=== PATIENT | male | born 1945 | race Caucasian/White ===

== ENCOUNTER → 2016-12-02 | Outpatient (CLI) | payer MEDICARE ==
[~2016-12-02] MED LIST: ALLOPURINOL300 MG PO; ANTIBIOTIC O500 U/GM TP; ATORVASTATIN CA20 M1 PO; AVAPRO300 MG PO; CIPRO500 MG PO; ECOTRIN325 MG PO; ECOTRIN81 M1 PO; FEXOFENADINE H180 MG PO; FLOMAX0.4 MG PO; HYDROCHLOROTHIA25 MG PO; IBUPROFEN800 MG PO; LIPITOR20 MG PO; METFORMIN500 MG PO; Motrin,Rufen800 MG PO; NORCO 325 MG-51 TAB PO; OXYBUTYNIN5 MG/5 M1 PO; PERCOCET 325 MG1 TA4 PO; PERCOCET 325 MG1 TA7 PO; TIZANIDINE HCL4 MG PO; ZANAFLEX6 M1 PO; ZOFRAN ODT4 MG SL
== END ==
LOC: US 07:05
DX: Z13.6 Encounter for screening for cardiovascular disorders (principal); I10 Essential (primary) hypertension; E78.5 Hyperlipidemia, unspecified

== ENCOUNTER → 2017-05-10 | Outpatient (CLI) | payer MEDICARE ==
[2017-05-10 09:00] LABS: BUN 13 mg/dl (7-24); CHLORIDE 106 mmol/L (98-107); POTASSIUM 4.3 mmol/L (3.5-5.1); SODIUM 142 mmol/L (136-145)
== END | disposition home or self-care (01) ==
LOC: LAB 07:51
PROVIDERS: Orthopaedic Surgery Hand Surgery
DX: Z01.818 Encounter for other preprocedural examination (principal); G56.21 Lesion of ulnar nerve, right upper limb; M19.021 Primary osteoarthritis, right elbow

== ENCOUNTER 2017-05-23 23:20 | Emergency (ER) | payer MEDICARE ==
[~2017-05-23] VITALS: Ht 177.8 cm; Wt 124.3 kg
[2017-05-23 23:24] VITALS: BP 163/88
[2017-05-24 00:11] LABS: BASO # 0.1 10*3/uL (0.0-0.1); BASO % 0.7 % (0.0-1.0); EOS # 0.5 10*3/uL (0.0-0.4); HEMATOCRIT 43.7 % (42.0-52.0); HEMOGLOBIN 14.9 g/dl (14.0-18.0); LYMPH # 1.9 10*3/uL (1.3-4.4); LYMPH % 18.4 % (27.0-41.0); MEAN CELL VOLUME 89.7 fl (80.0-94.0); MEAN CORPUSCULAR HGB 30.6 pg (27.0-31.0); MEAN CORPUSCULAR HGB CONC 34.1 g/dl (33.0-37.0); MEAN PLATELET VOLUME 9.8 fl (9.6-12.3); MONO # 1.1 10*3/uL (0.1-1.0); MONO % 10.7 % (3.0-9.0); NEUT # 6.5 10*3/uL (2.3-7.9); NEUT % 64.7 % (47.0-73.0); PLATELET COUNT AUTOMATED 157 10*3/uL (130-400); RED BLOOD COUNT 4.87 10*6/uL (4.50-5.90); RED CELL DISTRI WIDTH 12.9 % (0-14.5); WHITE BLOOD COUNT 10.1 10*3/uL (4.8-10.8)
[2017-05-24 00:26] LABS: ALBUMIN 4.1 gm/dl (3.1-4.5); ALKALINE PHOSPHATASE 117 U/L (45-117); BUN 19 mg/dl (7-24); CHLORIDE 103 mmol/L (98-107); CREATININE 0.83 mg/dL (0.70-1.30); LIPASE 180 U/L (73-393); POTASSIUM 4.2 mmol/L (3.5-5.1); SGOT/AST 18 IU/L (3-35); SGPT/ALT 30 U/L (12-78); SODIUM 139 mmol/L (136-145); TOTAL PROTEIN 6.9 gm/dL (6.4-8.2)
[2017-05-24 00:35] LABS: BILIRUBIN NEGATIVE (NEGATIVE); BLOOD 3+ (NEGATIVE); CLARITY SL CLOUDY (CLEAR); COLOR YELLOW (YELLOW); GLUCOSE NEGATIVE (NEGATIVE); KETONE NEGATIVE (NEGATIVE); LEUKO ESTERASE NEGATIVE (NEGATIVE); NITRITE NEGATIVE (NEGATIVE); PH 5.5 (5.0-9.0); SPECIFIC GRAVITY 1.025 (1.005-1.030); UROBILINOGEN 0.2 E.U./dl (0.2-1.0)
[2017-05-24 00:44] LABS: BACTERIA 2+; RBC 51-100 rbc/hpf (0-2); WBC 0-2 wbc/hpf (0-5)
[2017-05-24] MEDS ORDERED: NORCO 5-325 TA1 EACH PO (02:00)
[2017-05-24] MEDS ORDERED: FLOMAX0.4 MG PO (02:00)
[2017-05-24] MEDS ORDERED: ZOFRAN ODT4 MG SL (02:00)
== END 2017-05-24 02:21 | disposition home or self-care (01) ==
LOC: ED 23:20
PROVIDERS: Physician Assistant
DX: N20.1 Calculus of ureter (principal); Z87.442 Personal history of urinary calculi; Z88.1 Allergy status to other antibiotic agents; Z88.8 Allergy status to other drugs, medicaments and biological substances; Z79.82 Long term (current) use of aspirin; Z79.899 Other long term (current) drug therapy

== ENCOUNTER → 2017-06-30 | Outpatient (CLI) | payer MEDICARE ==
[~2017-06-30] MED LIST changes: +NORCO 5-325 TA1 EACH PO
[2017-06-30 09:13] LABS: BUN 15 mg/dl (7-24); CHLORIDE 104 mmol/L (98-107); CREATININE 0.78 mg/dL (0.70-1.30); POTASSIUM 4.4 mmol/L (3.5-5.1); SODIUM 140 mmol/L (136-145)
== END | disposition home or self-care (01) ==
LOC: LAB 08:31
PROVIDERS: Physician Assistant
DX: N20.0 Calculus of kidney (principal)

== ENCOUNTER 2017-11-02 22:16 | Emergency (ER) | payer MEDICARE ==
[~2017-11-02] VITALS: Ht 177.8 cm; Wt 122.9 kg
[2017-11-02 23:49] LABS: BILIRUBIN NEGATIVE (NEGATIVE); BLOOD NEGATIVE (NEGATIVE); CLARITY CLEAR (CLEAR); COLOR YELLOW (YELLOW); GLUCOSE NEGATIVE (NEGATIVE); KETONE NEGATIVE (NEGATIVE); LEUKO ESTERASE NEGATIVE (NEGATIVE); NITRITE NEGATIVE (NEGATIVE); SPECIFIC GRAVITY >= 1.030 (1.005-1.030); UROBILINOGEN 0.2 E.U./dl (0.2-1.0)
[2017-11-02 23:57] LABS: BASO # 0.1 10*3/uL (0.0-0.1); BASO % 0.8 % (0.0-1.0); EOS # 0.4 10*3/uL (0.0-0.4); EOS % 3.6 % (1.0-4.0); HEMATOCRIT 40.6 % (42.0-52.0); HEMOGLOBIN 13.9 g/dl (14.0-18.0); LYMPH # 1.7 10*3/uL (1.3-4.4); LYMPH % 15.9 % (27.0-41.0); MEAN CELL VOLUME 88.8 fl (80.0-94.0); MEAN CORPUSCULAR HGB 30.4 pg (27.0-31.0); MEAN CORPUSCULAR HGB CONC 34.2 g/dl (33.0-37.0); MEAN PLATELET VOLUME 9.6 fl (9.6-12.3); MONO # 1.1 10*3/uL (0.1-1.0); MONO % 10.4 % (3.0-9.0); NEUT # 7.3 10*3/uL (2.3-7.9); NEUT % 68.7 % (47.0-73.0); PLATELET COUNT AUTOMATED 154 10*3/uL (130-400); RED BLOOD COUNT 4.57 10*6/uL (4.50-5.90); RED CELL DISTRI WIDTH 13.1 % (0-14.5); WHITE BLOOD COUNT 10.5 10*3/uL (4.8-10.8)
[2017-11-03 00:02] LABS: BACTERIA TRACE; WBC 0-2 wbc/hpf (0-5)
[2017-11-03 00:11] LABS: ALBUMIN 3.9 gm/dl (3.1-4.5); ALKALINE PHOSPHATASE 93 U/L (45-117); BUN 20 mg/dl (7-24); CHLORIDE 106 mmol/L (98-107); CREATININE 0.98 mg/dL (0.70-1.30); POTASSIUM 3.6 mmol/L (3.5-5.1); SGOT/AST 22 IU/L (3-35); SGPT/ALT 31 U/L (12-78); SODIUM 140 mmol/L (136-145); TOTAL PROTEIN 6.4 gm/dL (6.4-8.2)
[2017-11-03 09:29] VITALS: BP 133/73
== END 2017-11-03 10:29 | disposition federal hospital, planned readmission (88) ==
LOC: ED 22:16
PROVIDERS: Emergency Medicine
DX: N13.8 Other obstructive and reflux uropathy (principal); N20.0 Calculus of kidney; E11.9 Type 2 diabetes mellitus without complications; I10 Essential (primary) hypertension; E78.5 Hyperlipidemia, unspecified; G47.33 Obstructive sleep apnea (adult) (pediatric); Z98.890 Other specified postprocedural states; Z79.899 Other long term (current) drug therapy; Z79.82 Long term (current) use of aspirin; Z88.1 Allergy status to other antibiotic agents

== ENCOUNTER 2020-07-26 22:27 | Inpatient (IN) | payer MEDICARE ==
[~2020-07-26] VITALS: Ht 177.8 cm; Wt 112.7 kg
[2020-07-26 22:37] VITALS: BP 125/75
[2020-07-27] VITALS (9 sets, daily range): BP systolic 90–141; BP diastolic 45–86
[2020-07-27 00:02] LABS: EOS % 0.7 % (1.0-4.0); LYMPH % 22.2 % (27.0-41.0); MEAN CELL VOLUME 87.6 fl (80.0-94.0); MEAN CORPUSCULAR HGB 29.5 pg (27.0-31.0); MEAN CORPUSCULAR HGB CONC 33.7 g/dl (33.0-37.0); MEAN PLATELET VOLUME 10.4 fl (9.6-12.3); MONO # 0.6 10*3/uL (0.1-1.0); MONO % 13.3 % (3.0-9.0); NEUT # 2.7 10*3/uL (2.3-7.9); NEUT % 63.6 % (47.0-73.0); PLATELET COUNT AUTOMATED 152 10*3/uL (130-400); RED BLOOD COUNT 4.34 10*6/uL (4.50-5.90); RED CELL DISTRI WIDTH 12.6 % (0-14.5); WHITE BLOOD COUNT 4.3 10*3/uL (4.8-10.8)
[2020-07-27 00:27] LABS: ALBUMIN 3.3 gm/dl (3.1-4.5); ALKALINE PHOSPHATASE 56 U/L (45-117); BUN 20 mg/dl (7-24); CHLORIDE 100 mmol/L (98-107); CPK 582 U/L (39-308); CREATININE 0.76 mg/dL (0.70-1.30); INTERNATIONAL NORM RATIO 1.1 (2.0-3.5); LDH 350 U/L (87-241); POTASSIUM 3.6 mmol/L (3.5-5.1); SGOT/AST 51 IU/L (3-35); SGPT/ALT 48 U/L (12-78); SODIUM 136 mmol/L (136-145); TOTAL PROTEIN 6.4 gm/dL (6.4-8.2)
[2020-07-27 00:29] LABS: BILIRUBIN 1+ (Negative); BLOOD Negative (Negative); CLARITY Clear (Clear); COLOR Dark Yellow (Yellow); GLUCOSE Negative (Negative); KETONE Trace (Negative); LEUKO ESTERASE Trace (Negative); NITRITE Negative (Negative); PH 6.5 (4.5-8.0); SPECIFIC GRAVITY >= 1.030 (1.001-1.030)
[2020-07-27 00:31] LABS: TROPONIN I < 0.015 ng/ml (<0.045)
[2020-07-27 00:55] LABS: BACTERIA TRACE; MUCOUS TRACE
[2020-07-27 05:54] LABS: ALBUMIN 3.3 gm/dl (3.1-4.5); BUN 20 mg/dl (7-24); CHLORIDE 99 mmol/L (98-107); CREATININE 0.75 mg/dL (0.70-1.30); POTASSIUM 3.5 mmol/L (3.5-5.1); SGOT/AST 51 IU/L (3-35); SGPT/ALT 49 U/L (12-78); SODIUM 135 mmol/L (136-145)
[2020-07-27 05:57] LABS: ALKALINE PHOSPHATASE 56 U/L (45-117); TOTAL PROTEIN 6.7 gm/dL (6.4-8.2)
[2020-07-27 06:07] LABS: HEMATOCRIT 38.5 % (42.0-52.0); LYMPH # 0.8 10*3/uL (1.3-4.4); LYMPH % 16.1 % (27.0-41.0); MEAN CELL VOLUME 88.3 fl (80.0-94.0); MEAN CORPUSCULAR HGB 29.8 pg (27.0-31.0); MEAN CORPUSCULAR HGB CONC 33.8 g/dl (33.0-37.0); MEAN PLATELET VOLUME 10.8 fl (9.6-12.3); MONO # 0.3 10*3/uL (0.1-1.0); MONO % 5.8 % (3.0-9.0); NEUT # 3.9 10*3/uL (2.3-7.9); NEUT % 77.7 % (47.0-73.0); PLATELET COUNT AUTOMATED 158 10*3/uL (130-400); RED BLOOD COUNT 4.36 10*6/uL (4.50-5.90); RED CELL DISTRI WIDTH 12.6 % (0-14.5)
[2020-07-27 06:47] LABS: ACT PARTIAL THROMBO TIME 36.2 SECONDS (20.0-32.1); INTERNATIONAL NORM RATIO 1.1 (2.0-3.5)
[2020-07-28] VITALS: BP 109/89
[2020-07-28 05:43] LABS: ALBUMIN 3.3 gm/dl (3.1-4.5); BUN 19 mg/dl (7-24); CHLORIDE 100 mmol/L (98-107); CREATININE 0.79 mg/dL (0.70-1.30); LDH 321 U/L (87-241); POTASSIUM 3.6 mmol/L (3.5-5.1); SGOT/AST 38 IU/L (3-35); SGPT/ALT 46 U/L (12-78); SODIUM 137 mmol/L (136-145); TOTAL PROTEIN 6.5 gm/dL (6.4-8.2)
[2020-07-28 05:45] LABS: ALKALINE PHOSPHATASE 58 U/L (45-117)
[2020-07-28 05:46] LABS: CPK 381 U/L (39-308)
[2020-07-28 06:44] LABS: BASO % 0.2 % (0.0-1.0); EOS % 0.2 % (1.0-4.0); HEMATOCRIT 38.7 % (42.0-52.0); LYMPH # 1.1 10*3/uL (1.3-4.4); LYMPH % 20.1 % (27.0-41.0); MEAN CELL VOLUME 89.6 fl (80.0-94.0); MEAN CORPUSCULAR HGB 29.6 pg (27.0-31.0); MEAN CORPUSCULAR HGB CONC 33.1 g/dl (33.0-37.0); MONO # 0.6 10*3/uL (0.1-1.0); MONO % 10.9 % (3.0-9.0); NEUT # 3.8 10*3/uL (2.3-7.9); NEUT % 68.1 % (47.0-73.0); PLATELET COUNT AUTOMATED 178 10*3/uL (130-400); RED BLOOD COUNT 4.32 10*6/uL (4.50-5.90); RED CELL DISTRI WIDTH 12.7 % (0-14.5); WHITE BLOOD COUNT 5.6 10*3/uL (4.8-10.8)
[2020-07-28 08:00] VITALS: BP 108/64
[2020-07-28 12:00] VITALS: BP 101/56
[2020-07-28 16:00] VITALS: BP 96/52
[2020-07-28 20:00] VITALS: BP 102/58
[2020-07-29] VITALS: BP 98/60
[2020-07-29 06:33] LABS: EOS % 0.2 % (1.0-4.0); HEMATOCRIT 36.9 % (42.0-52.0); LYMPH # 0.9 10*3/uL (1.3-4.4); LYMPH % 18.5 % (27.0-41.0); MEAN CELL VOLUME 88.9 fl (80.0-94.0); MEAN CORPUSCULAR HGB 30.1 pg (27.0-31.0); MEAN CORPUSCULAR HGB CONC 33.9 g/dl (33.0-37.0); MEAN PLATELET VOLUME 10.7 fl (9.6-12.3); MONO # 0.6 10*3/uL (0.1-1.0); MONO % 12.2 % (3.0-9.0); NEUT # 3.2 10*3/uL (2.3-7.9); NEUT % 68.7 % (47.0-73.0); PLATELET COUNT AUTOMATED 174 10*3/uL (130-400); RED BLOOD COUNT 4.15 10*6/uL (4.50-5.90); RED CELL DISTRI WIDTH 12.9 % (0-14.5); WHITE BLOOD COUNT 4.6 10*3/uL (4.8-10.8)
[2020-07-29 06:52] LABS: BUN 20 mg/dl (7-24); CHLORIDE 99 mmol/L (98-107); CREATININE 0.71 mg/dL (0.70-1.30); POTASSIUM 3.6 mmol/L (3.5-5.1); SGOT/AST 25 IU/L (3-35); SGPT/ALT 40 U/L (12-78); SODIUM 135 mmol/L (136-145); TOTAL PROTEIN 6.1 gm/dL (6.4-8.2)
[2020-07-29 06:55] LABS: ALKALINE PHOSPHATASE 54 U/L (45-117); CPK 183 U/L (39-308); LDH 278 U/L (87-241)
[2020-07-29 08:00] VITALS: BP 105/59
[2020-07-29 12:00] VITALS: BP 114/65
[2020-07-29] MEDS ORDERED: DECADRON6 M1 PO (14:07)
== END 2020-07-29 16:34 | disposition home or self-care (01) | DRG 177 ==
LOC: ED 22:27 → EDHOLD 07-27 02:20 → 4E 07-27 02:20
PROVIDERS: Emergency Medicine; Family Medicine; Internal Medicine; ADMIT Internal Medicine; ATTEND Internal Medicine
DX: U07.1 COVID-19 (principal); J12.82 Pneumonia due to coronavirus disease 2019; E83.42 Hypomagnesemia; E11.9 Type 2 diabetes mellitus without complications; G47.33 Obstructive sleep apnea (adult) (pediatric); E78.5 Hyperlipidemia, unspecified; I10 Essential (primary) hypertension; D72.819 Decreased white blood cell count, unspecified; D64.9 Anemia, unspecified; R74.01 Elevation of levels of liver transaminase levels; E11.65 Type 2 diabetes mellitus with hyperglycemia; E87.5 Hyperkalemia; Z88.1 Allergy status to other antibiotic agents; Z88.8 Allergy status to other drugs, medicaments and biological substances; Z87.442 Personal history of urinary calculi; Z80.8 Family history of malignant neoplasm of other organs or systems; Z79.899 Other long term (current) drug therapy

== ENCOUNTER 2020-10-22 17:31 | Emergency (ER) | payer MEDICARE ==
[~2020-10-22] VITALS: Ht 177.8 cm; Wt 122.5 kg
[~2020-10-22 17:31] MED LIST changes: +DECADRON6 M1 PO
[2020-10-22 18:39] LABS: BASO % 0.4 % (0.0-1.0); EOS % 0.4 % (1.0-4.0); HEMATOCRIT 39.4 % (42.0-52.0); LYMPH # 0.8 10*3/uL (1.3-4.4); LYMPH % 16.8 % (27.0-41.0); MEAN CELL VOLUME 90.8 fl (80.0-94.0); MEAN CORPUSCULAR HGB 30.9 pg (27.0-31.0); MEAN PLATELET VOLUME 9.5 fl (9.6-12.3); MONO # 0.6 10*3/uL (0.1-1.0); MONO % 13.1 % (3.0-9.0); NEUT # 3.2 10*3/uL (2.3-7.9); NEUT % 68.9 % (47.0-73.0); PLATELET COUNT AUTOMATED 140 10*3/uL (130-400); RED BLOOD COUNT 4.34 10*6/uL (4.50-5.90); RED CELL DISTRI WIDTH 13.1 % (0-14.5); WHITE BLOOD COUNT 4.6 10*3/uL (4.8-10.8)
[2020-10-22 18:52] LABS: ALBUMIN 3.9 gm/dl (3.1-4.5); ALKALINE PHOSPHATASE 89 U/L (45-117); BUN 15 mg/dl (7-24); CHLORIDE 101 mmol/L (98-107); CREATININE 0.77 mg/dL (0.70-1.30); POTASSIUM 3.4 mmol/L (3.5-5.1); SGOT/AST 14 IU/L (3-35); SGPT/ALT 29 U/L (12-78); SODIUM 138 mmol/L (136-145); TOTAL PROTEIN 6.7 gm/dL (6.4-8.2)
[2020-10-22 22:02] LABS: BILIRUBIN Negative (Negative); BLOOD Negative (Negative); CLARITY Clear (Clear); COLOR Yellow (Yellow); GLUCOSE Negative (Negative); KETONE Negative (Negative); LEUKO ESTERASE Negative (Negative); NITRITE Negative (Negative); SPECIFIC GRAVITY 1.025 (1.001-1.030)
[2020-10-22 22:11] LABS: COARSE GRANULAR CAST 0-2; EPITHELIAL CELLS 0-2; FINE GRANULAR CAST 0-2; WBC 0-2 wbc/hpf (0-5)
[2020-10-22 22:16] VITALS: BP 104/63
== END 2020-10-22 22:22 | disposition home or self-care (01) ==
LOC: ED 17:31
PROVIDERS: Physician Assistant
DX: R53.83 Other fatigue (principal); T50.B95A Adverse effect of other viral vaccines, initial encounter; Z20.822 Contact with and (suspected) exposure to COVID-19; R53.1 Weakness; Z79.899 Other long term (current) drug therapy; Z88.8 Allergy status to other drugs, medicaments and biological substances; Z79.84 Long term (current) use of oral hypoglycemic drugs; Z98.890 Other specified postprocedural states; Z95.818 Presence of other cardiac implants and grafts; Z88.1 Allergy status to other antibiotic agents; Y92.89 Other specified places as the place of occurrence of the external cause

== ENCOUNTER → 2021-07-27 | Outpatient (CLI) | payer MEDICARE | END | disposition home or self-care (01) | LOC: US 15:00 | PROVIDERS: ATTEND Orthopaedic Surgery | DX: I73.9 Peripheral vascular disease, unspecified (principal); R09.89 Other specified symptoms and signs involving the circulatory and respiratory systems ==

== ENCOUNTER → 2021-11-25 | Outpatient (CLI) | payer MEDICARE | END | disposition home or self-care (01) | LOC: RESCLI 00:19 | PROVIDERS: ATTEND Emergency Medicine | DX: I10 Essential (primary) hypertension (principal); E11.9 Type 2 diabetes mellitus without complications; E78.5 Hyperlipidemia, unspecified; M79.10 Myalgia, unspecified site; R21 Rash and other nonspecific skin eruption; Z79.899 Other long term (current) drug therapy; Z79.82 Long term (current) use of aspirin ==

== ENCOUNTER → 2021-12-16 | Outpatient (CLI) | payer MEDICARE ==
[2021-12-16 12:55] LABS: HEMATOCRIT 41.9 % (42.0-52.0); MEAN CELL VOLUME 90.9 fl (80.0-94.0); MEAN CORPUSCULAR HGB 31.5 pg (27.0-31.0); MEAN CORPUSCULAR HGB CONC 34.6 g/dl (33.0-37.0); MEAN PLATELET VOLUME 9.5 fl (9.6-12.3); RED BLOOD COUNT 4.61 10*6/uL (4.50-5.90); RED CELL DISTRI WIDTH 12.8 % (0-14.5); WHITE BLOOD COUNT 6.9 10*3/uL (4.8-10.8)
[2021-12-16 12:56] LABS: BILIRUBIN Negative (Negative); BLOOD Negative (Negative); CLARITY Clear (Clear); COLOR Yellow (Yellow); GLUCOSE Negative (Negative); KETONE Negative (Negative); LEUKO ESTERASE Negative (Negative); NITRITE Negative (Negative); SPECIFIC GRAVITY 1.015 (1.001-1.030)
[2021-12-16 13:06] LABS: ACT PARTIAL THROMBO TIME 30.4 SECONDS (20.0-32.1); INTERNATIONAL NORM RATIO 1.1 (2.0-3.5)
[2021-12-16 13:10] LABS: RBC 0-2 rbc/hpf (0-2); WBC 0-2 wbc/hpf (0-5)
[2021-12-16 13:12] LABS: ALKALINE PHOSPHATASE 118 U/L (45-117); BUN 13 mg/dl (7-24); CHLORIDE 108 mmol/L (98-107); CREATININE 0.72 mg/dL (0.70-1.30); POTASSIUM 3.9 mmol/L (3.5-5.1); SGOT/AST 20 IU/L (3-35); SGPT/ALT 35 U/L (12-78); SODIUM 141 mmol/L (136-145); TOTAL PROTEIN 6.7 gm/dL (6.4-8.2)
== END | disposition home or self-care (01) ==
LOC: LAB 12:31
PROVIDERS: ATTEND Physician Assistant
DX: Z01.818 Encounter for other preprocedural examination (principal); E78.00 Pure hypercholesterolemia, unspecified; E11.9 Type 2 diabetes mellitus without complications; I10 Essential (primary) hypertension

== ENCOUNTER → 2021-12-30 | Outpatient (CLI) | payer MEDICARE | END | disposition home or self-care (01) | LOC: US 15:00 | PROVIDERS: ATTEND Orthopaedic Surgery | DX: R09.89 Other specified symptoms and signs involving the circulatory and respiratory systems (principal); I10 Essential (primary) hypertension; E11.9 Type 2 diabetes mellitus without complications ==

== ENCOUNTER 2024-04-25 19:22 | Emergency (ER) | payer MEDICARE ==
[2024-04-25] MEDS ORDERED: ADENOSINE 6 MG/2 ML VIAL IV ONE ×2 (19:30→19:35)
[2024-04-25] MEDS ORDERED: SODIUM CHLORIDE 0.9% 1,000 ML IV ONE (19:35)
[2024-04-25 19:36] LABS: BASO # 0.1 10*3/uL (0.0-0.1); BASO % 0.8 % (0.0-1.0); EOS # 0.5 10*3/uL (0.0-0.4); EOS % 4.6 % (1.0-4.0); HEMATOCRIT 44.5 % (42.0-52.0); MEAN CELL VOLUME 93.5 fl (80.0-94.0); MEAN CORPUSCULAR HGB 31.7 pg (27.0-31.0); MEAN CORPUSCULAR HGB CONC 33.9 g/dl (33.0-37.0); MEAN PLATELET VOLUME 9.6 fl (9.6-12.3); MONO # 0.9 10*3/uL (0.1-1.0); MONO % 8.7 % (3.0-9.0); NEUT # 5.8 10*3/uL (2.3-7.9); NEUT % 56.4 % (47.0-73.0); PLATELET COUNT AUTOMATED 193 10*3/uL (130-400); RED BLOOD COUNT 4.76 10*6/uL (4.50-5.90); RED CELL DISTRI WIDTH 13.3 % (0-14.5); WHITE BLOOD COUNT 10.3 10*3/uL (4.8-10.8)
[2024-04-25 19:53] LABS: ALKALINE PHOSPHATASE 124 U/L (46-116); BUN 20 mg/dl (9-23); CHLORIDE 104 mmol/L (98-107); POTASSIUM 3.6 mmol/L (3.4-5.1); SGPT/ALT 23 U/L (5-49); TOTAL PROTEIN 6.7 gm/dL (6.0-8.0)
[2024-04-25] MEDS ORDERED: FLOMAX0.4 MG PO (20:33)
[2024-04-25] MEDS ORDERED: Avapro300 MG PO (20:33)
[2024-04-25] MEDS ORDERED: CHLORTHALIDONE25 MG PO (20:33)
[2024-04-25 22:02] VITALS: BP 106/70
== END 2024-04-25 22:21 | disposition home or self-care (01) ==
LOC: ED 19:22
PROVIDERS: Internal Medicine
DX: I47.10 Supraventricular tachycardia, unspecified (principal); R73.9 Hyperglycemia, unspecified; Z88.8 Allergy status to other drugs, medicaments and biological substances; Z88.1 Allergy status to other antibiotic agents; Z91.048 Other nonmedicinal substance allergy status; Z79.82 Long term (current) use of aspirin; Z79.899 Other long term (current) drug therapy; Z79.84 Long term (current) use of oral hypoglycemic drugs; Z98.890 Other specified postprocedural states; Z87.442 Personal history of urinary calculi

== ENCOUNTER 2024-05-04 20:32 | Emergency (ER) | payer MEDICARE ==
[~2024-05-04] VITALS: Ht 177.8 cm; Wt 117.0 kg
[~2024-05-04 20:32] MED LIST changes: +Avapro300 MG PO; +CHLORTHALIDONE25 MG PO
[2024-05-04] MEDS ORDERED: LORazepam 0.5 MG TAB PO ONE (20:55)
[2024-05-04 21:06] LABS: BASO % 0.4 % (0.0-1.0); EOS # 0.3 10*3/uL (0.0-0.4); EOS % 3.5 % (1.0-4.0); MEAN CELL VOLUME 93.8 fl (80.0-94.0); MEAN CORPUSCULAR HGB 31.8 pg (27.0-31.0); MEAN CORPUSCULAR HGB CONC 33.9 g/dl (33.0-37.0); MEAN PLATELET VOLUME 9.7 fl (9.6-12.3); MONO # 0.7 10*3/uL (0.1-1.0); MONO % 8.7 % (3.0-9.0); NEUT # 5.6 10*3/uL (2.3-7.9); NEUT % 68.2 % (47.0-73.0); PLATELET COUNT AUTOMATED 166 10*3/uL (130-400); RED BLOOD COUNT 4.37 10*6/uL (4.50-5.90); RED CELL DISTRI WIDTH 13.2 % (0-14.5); WHITE BLOOD COUNT 8.3 10*3/uL (4.8-10.8)
[2024-05-04 21:25] LABS: BUN 18 mg/dl (9-23); CHLORIDE 105 mmol/L (98-107)
[2024-05-04 22:51] VITALS: BP 133/60
== END 2024-05-04 22:50 | disposition home or self-care (01) ==
LOC: ED 20:32
PROVIDERS: Internal Medicine
DX: F41.9 Anxiety disorder, unspecified (principal); Z20.822 Contact with and (suspected) exposure to COVID-19; I10 Essential (primary) hypertension; J45.909 Unspecified asthma, uncomplicated; E78.5 Hyperlipidemia, unspecified; Z87.442 Personal history of urinary calculi; Z91.048 Other nonmedicinal substance allergy status; Z88.8 Allergy status to other drugs, medicaments and biological substances; Z98.890 Other specified postprocedural states; Z95.5 Presence of coronary angioplasty implant and graft